=== PATIENT | female | born 1985 | race Caucasian/White ===

== ENCOUNTER 2016-10-17 19:40 | Emergency (ER) | payer MEDICAID ==
[2016-10-17] MEDS ORDERED: SULFAMETH/TRIMETH DS 800/160 MG TABLET PO STA (19:47)
[2016-10-17] MEDS ORDERED: SULFAMETH/TRIMETH DS 800/160 MG TABLET PO ONE (19:50)
[2016-10-17] MEDS ORDERED: oxyCOD/ACETAMIN 5 MG/325 MG TABLET PO STA (20:03)
[2016-10-17] MEDS ORDERED: oxyCOD/ACETAMIN 5 MG/325 MG TABLET PO ONE (20:04)
== END 2016-10-17 20:10 | disposition home or self-care (01) ==
DX: L02.414 Cutaneous abscess of left upper limb (principal); F11.99 Opioid use, unspecified with unspecified opioid-induced disorder; F17.200 Nicotine dependence, unspecified, uncomplicated
CPT/HCPCS: 10060; 87070; 87077; 87181; 87205; 99283; A9270

== ENCOUNTER 2018-05-06 17:44 | Emergency (ER) | payer MEDICAID ==
--- NOTE | 2018-05-06 21:53 | ED Physician Documentation ---
PD HPI SKIN - Stated complaint Stated Complaint: WOUND/LT BUTTOCK - Chief complaint Chief Complaint: Wound - History obtained from History obtained from: Patient - History of Present Illness Timing - onset: How many days ago (several) Timing - duration: Days Timing - details: Gradual onset, Still present Location: Other (left gluteal area with progressive swelling and tenderness over the past several days. Has had abscesses in the past, but not recent.) Quality / character: Painful, Discolored (red), Swelling Associated symptoms: Fever (just started today coming to the ER.). No: Myalgias Similar symptoms before: Diagnosis (staph abscesses) Review of Systems Constitutional: reports: Fever (just here in ER) Nose: denies: Rhinorrhea / runny nose, Congestion Throat: denies: Sore throat Respiratory: denies: Cough GI: denies: Abdominal Pain, Nausea, Vomiting, Diarrhea Skin: reports: Lesions. 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 - Present Medications Home Medications: Ambulatory Orders Medication Instructions Recorded Confirmed Cyclobenzaprine [Flexeril] 10 mg PO TID PRN #20 tablet 07/07/15 Oxycodone HCl/Acetaminophen 1 - 2 each PO Q6H PRN #14 tablet 07/07/15 [Percocet 5-325 mg Tablet] Sulfamethoxazole/Trimethoprim 1 each PO BID 10 Days tablet 10/17/16 [Sulfamethoxazole-Tmp Ds Tablet] Chlorhexidine Gluconate [Hibiclens] 15 ml TP DAILY #236 ml 05/06/18 Naproxen 375 mg PO BID #20 tablet 05/06/18 Oxycodone HCl/Acetaminophen 1 - 2 each PO Q6H PRN #14 tablet 05/06/18 [Percocet 5-325 mg Tablet] Sulfamethox/Trimeth 800/160 1 each PO BID #20 tablet 05/06/18 [Bactrim Ds 800/160] - Allergies Allergies/Adverse Reactions: Allergies Allergy/AdvReac Type Severity Reaction Status Date / Time No Known Drug Allergies Allergy Verified 07/07/15 14:21 - Social History Does the pt smoke?: Yes Smoking Status: Current every day smoker Does the pt drink ETOH?: Yes Does the pt have substance abuse?: Yes - Immunizations Immunizations are current?: Yes PD ED PE NORMAL - Vitals Vital signs reviewed: Yes - General General: Alert and oriented X 3, Well developed/nourished - Cardiac Cardiac: RRR, No murmur - Respiratory Respiratory: Clear bilaterally - Abdomen Abdomen: Soft, Non tender - Derm Derm: Normal color, Warm and dry, Other (left gluteal area with swelling, tenderness, redness about 4-5 cm dimater area, confirmed with U/S showing abscess subcut and does not appear to go into muscle layer. ) - Neuro Neuro: Alert and oriented X 3, No motor deficit, Normal speech Results - Vitals Vitals: Oxygen O2 Source Room air PD MEDICAL DECISION MAKING - ED course Complexity details: re-evaluated patient (feeling better after drainage, less pain and pressure. ), considered differential (appears as large subcut absess. Leg extension is okay without much pain, so does not seem into gluteal muscles. Bedside U/S showed it above muscle layer but large.), d/w patient Departure - Departure Disposition: 01 Home, Self Care Clinical Impression: Abscess, gluteal, left Condition: Stable Record reviewed to determine appropriate education?: Yes Instructions: ED Abscess IandD Prescriptions: Chlorhexidine Gluconate [Hibiclens] 15 ml TP DAILY #236 ml Naproxen 375 mg PO BID #20 tablet Oxycodone HCl/Acetaminophen [Percocet 5-325 mg Tablet] 1 - 2 each PO Q6H PRN #14 tablet PRN Reason: pain Sulfamethox/Trimeth 800/160 [Bactrim Ds 800/160] 1 each PO BID #20 tablet Comments: Warm moist towels or soaks to the abscess area to promote drainage. Bactrim antibiotic twice daily for 10 days for the infection. Naproxen twice daily for the inflammation. Add Tylenol or Percocet if needed for pain. Daily use the Hibiclens body wash from head to toe in the shower to reduce the germs on the skin surface overall. Recheck if not improving well over the next 2-3 days. Discharge Date/Time: 05/06/18 23:26
[2018-05-06] MEDS ORDERED: KETOROLAC 30 MG/ML VIAL IM STA (22:04)
[2018-05-06] MEDS ORDERED: SULFAMETH/TRIMETH DS 800/160 MG TABLET PO STA (22:04)
[2018-05-06] MEDS ORDERED: HYDROmorphone 2 MG/ML VIAL IM STA (22:04)
[2018-05-06 23:25] VITALS: BP 122/71
== END 2018-05-06 23:26 | disposition home or self-care (01) ==
LOC: ED 17:44
DX: L02.31 Cutaneous abscess of buttock (principal); F17.200 Nicotine dependence, unspecified, uncomplicated
CPT/HCPCS: 96372; 99283; A9270; J1170

== ENCOUNTER 2018-08-21 13:13 | Emergency (ER) | payer MEDICAID ==
[2018-08-21 13:20] VITALS: BP 150/95
[2018-08-21] MEDS ORDERED: cefTRIAXone 250 MG VIAL IM STA (13:27)
[2018-08-21] MEDS ORDERED: LIDOCAINE 1% 2 ML VIAL SUBQ ONE (13:27)
[2018-08-21] MEDS ORDERED: AZITHROMYCIN 250 MG TABLET PO STA (13:27)
--- NOTE | 2018-08-21 13:28 | ED Physician Documentation ---
PD HPI ABD PAIN - Stated complaint Stated Complaint: STOMACH ISSUES, - Chief complaint Chief Complaint: Abd Pain - History obtained from History obtained from: Patient - History of Present Illness Timing - onset: Other (She has had vaginal discharge for 4 weeks and her ex- boyfriend called her and told her that he was tested positive for chlamydia. 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 - Present Medications Home Medications: Ambulatory Orders Medication Instructions Recorded Confirmed Cyclobenzaprine [Flexeril] 10 mg PO TID PRN #20 tablet 07/07/15 Oxycodone HCl/Acetaminophen 1 - 2 each PO Q6H PRN #14 tablet 07/07/15 [Percocet 5-325 mg Tablet] Sulfamethoxazole/Trimethoprim 1 each PO BID 10 Days tablet 10/17/16 [Sulfamethoxazole-Tmp Ds Tablet] Chlorhexidine Gluconate [Hibiclens] 15 ml TP DAILY #236 ml 05/06/18 Naproxen 375 mg PO BID #20 tablet 05/06/18 Oxycodone HCl/Acetaminophen 1 - 2 each PO Q6H PRN #14 tablet 05/06/18 [Percocet 5-325 mg Tablet] Sulfamethox/Trimeth 800/160 1 each PO BID #20 tablet 05/06/18 [Bactrim Ds 800/160] - Allergies Allergies/Adverse Reactions: Allergies Allergy/AdvReac Type Severity Reaction Status Date / Time No Known Drug Allergies Allergy Verified 08/21/18 13:20 - Social History Does the pt smoke?: Yes Smoking Status: Current every day smoker Does the pt drink ETOH?: Yes Does the pt have substance abuse?: Yes - Immunizations Immunizations are current?: Yes PD ED PE NORMAL - Vitals Vital signs reviewed: Yes - General General: Alert and oriented X 3, No acute distress - Abdomen Abdomen: Soft, Non tender - Back Back: No CVA TTP - Neuro Neuro: Alert and oriented X 3, Normal speech Results - Vitals Vitals: Vital Signs - 24 hr 08/21/18 13:18 Temperature 36.7 C Heart Rate 110 H Respiratory 18 Rate Blood Pressure 150/95 H O2 Saturation 98 Oxygen O2 Source Room air Departure - Departure Disposition: 01 Home, Self Care Clinical Impression: STD exposure Condition: Good Record reviewed to determine appropriate education?: Yes Instructions: ED VD Cervicitis Treated Comments: Call your doctor to arrange a follow-up appointment, make the next available appointment. In the interim, return anytime if worse or if new symptoms develop. Your blood pressure was elevated today on check into the emergency department. This does not mean that you have hypertension, it is a common phenomenon to come to the emergency department and have elevated blood pressure. I recommend that you see your primary care physician within the week to have it rechecked when you are feeling better.
== END 2018-08-21 13:46 | disposition home or self-care (01) ==
LOC: ED 13:13
DX: Z20.2 Contact with and (suspected) exposure to infections with a predominantly sexual mode of transmission (principal); N89.8 Other specified noninflammatory disorders of vagina; R03.0 Elevated blood-pressure reading, without diagnosis of hypertension; F17.200 Nicotine dependence, unspecified, uncomplicated
CPT/HCPCS: 87491; 87591; 96372; 99282; 99283; A9270

== ENCOUNTER 2019-09-02 10:41 | Outpatient (CLI) | payer MEDICAID | END 2019-09-02 10:42 | disposition EMS.NT | LOC: EMS 10:41 | PROVIDERS: ATTEND Surgery | DX: R41.82 Altered mental status, unspecified (principal) ==

== ENCOUNTER 2020-06-26 19:49 | Emergency (ER) | payer MEDICAID ==
[2020-06-26] MEDS ORDERED: BUFFERED LIDOCAINE 10 ML SYRINGE SUBQ STA (20:27)
[2020-06-26] MEDS ORDERED: KETAMINE 500 MG/10 ML VIAL IVP STA (20:27)
--- NOTE | 2020-06-26 20:29 | ED Physician Documentation ---
PD HPI WOUND RECHECK - Stated complaint Stated Complaint: RT LEG PX/SWELLING - Chief complaint Chief Complaint: Wound - Histroy obtained from History obtained from: Patient - Additional information Additional information: 35-year-old woman with history of drug use. She is on methadone and still occasionally uses methamphetamines but does not inject. For the last week she has had an increasingly sized lump on the right thigh which is painful. Tried some oral clindamycin just prior to arrival which was not immediately helpful. Last oral intake at 4:30 PM she is quite anxious. No fevers. 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 - Present Medications Home Medications: Ambulatory Orders Medication Instructions Recorded Confirmed Ibuprofen [Motrin] 800 mg PO Q8H PRN #30 tablet 06/26/20 Methadone 123 mg PO DAILY 06/26/20 06/26/20 Sertraline [Zoloft] 50 mg PO DAILY 06/26/20 06/26/20 clindamycin HCL [Cleocin HCl] 300 mg PO BID #20 capsule 06/26/20 - Allergies Allergies/Adverse Reactions: Allergies Allergy/AdvReac Type Severity Reaction Status Date / Time No Known Drug Allergies Allergy Verified 06/26/20 20:03 - Social History Does the pt smoke?: Yes Smoking Status: Current every day smoker Does the pt drink ETOH?: Yes Does the pt have substance abuse?: Yes Substance Use and Type: Meth - Immunizations Immunizations are current?: Yes PD ED PE NORMAL - Vitals Vital signs reviewed: Yes - General General: Alert and oriented X 3, No acute distress - HEENT HEENT: PERRL, EOMI - Neck Neck: Supple, no meningeal sign, No bony TTP - Cardiac Cardiac: RRR, No murmur - Respiratory Respiratory: No respiratory distress, Clear bilaterally - Abdomen Abdomen: Normal bowel sounds, Soft, Non tender - Back Back: No CVA TTP, No spinal TTP - Derm Derm: Normal color, Warm and dry - Extremities Extremities: Other (An abscess on the lateral upper right thigh with a significant area of surrounding cellulitis measuring probably 20 x 15 cm.) - Neuro Neuro: Alert and oriented X 3, Normal speech Results - Vitals Vitals: Vital Signs - 24 hr 06/26/20 06/26/20 06/26/20 19:50 21:05 21:30 Temperature 37.2 C Heart Rate 102 H 105 H 110 H Respiratory 18 26 H 27 H Rate Blood Pressure 143/84 H 132/82 H 134/86 H O2 Saturation 98 98 99 06/26/20 06/26/20 06/26/20 21:31 21:32 21:33 Temperature Heart Rate 109 H 113 H 112 H Respiratory 27 H 33 H 28 H Rate Blood Pressure 153/101 H 134/94 H 147/93 H O2 Saturation 97 99 100 06/26/20 06/26/20 06/26/20 21:34 21:35 21:36 Temperature Heart Rate 115 H 108 H 96 Respiratory 25 H 15 16 Rate Blood Pressure 125/91 H 131/106 H 133/87 H O2 Saturation 99 97 99 06/26/20 06/26/20 21:45 22:32 Temperature 37.2 C Heart Rate 85 96 Respiratory 25 H 18 Rate Blood Pressure 130/78 121/76 O2 Saturation 96 98 Oxygen O2 Source Room air - Labs Labs: Microbiology 06/26/20 21:19 Wound Culture - Preliminary Abscess Laboratory Tests 06/26/20 06/26/20 20:55 20:55 WBC 13.4 H RBC 3.93 L Hgb 12.4 Hct 37.2 MCV 94.7 MCH 31.6 H MCHC 33.3 RDW 12.9 Plt Count 456 H MPV 8.6 Neut # (Auto) 9.6 H Lymph # (Auto) 2.9 [place] # (Auto) 0.8 Eos # (Auto) 0.0 Baso # (Auto) 0.1 Absolute Nucleated RBC 0.00 Nucleated RBC % 0.0 Sodium 138 Potassium 4.0 Chloride 100 L Carbon Dioxide 25 Anion Gap 13.0 BUN 9 Creatinine 0.8 Estimated GFR (MDRD) 82 L Glucose 88 Calcium 9.2 Procedures - General procedure General procedure: She was difficult for IV access, I personally placed a long 22-gauge IV in the left deep brachial vein using real-time ultrasound guidance after ChloraPrep which flushed and rhonda well and labs were drawn. - Abscess I&D (location) R thigh Preparation: Confirmed with ultrasound, Alcohol, Lidocaine 1%, Conscious sedation Incision: Incised with scalpel, Purulent drainage, Loculations broken, Packed (with 1" packing), Culture obtained Other: Pt tolerated well, Dressing applied - Procedural sedation Sedation prep: Informed consent, Time out completed, Last meal (430pm), PE performed, ASA 2 - mild disease Sedation medications: ketamine (150mg IVP) Patient status during sedation: Responds to tactile, Recovered uneventfully Sedation recovery: Recovered uneventfully Time in sedation (Minutes): 15 PD MEDICAL DECISION MAKING - ED course ED course: 35-year-old woman with a large abscess on the right lateral thigh with significant surrounding cellulitis but does not appear septic. She had a lot of anxiety and she was sedated for the incision and drainage which was done without immediate issue with improved pain. She will return in 2 days for wound check and culture review. She did receive IV clindamycin here. Departure - Departure Disposition: Home, Self Care Clinical Impression: Abscess Condition: Good Record reviewed to determine appropriate education?: Yes Instructions: ED Abscess IandD Prescriptions: clindamycin HCL [Cleocin HCl] 300 mg PO BID #20 capsule Ibuprofen [Motrin] 800 mg PO Q8H PRN #30 tablet PRN Reason: PAIN &/OR FEVER Comments: You were seen today for a very large abscess on the right thigh. Like due to return on Saturday for recheck, culture review and packing removal. Sooner if worsening or if pain is intolerable. Continue usual medications. Discharge Date/Time: 06/26/20 22:36
[2020-06-26 20:58] LABS: BASOPHILS # (AUTO) 0.1 10^3/uL (0.0-0.1); BASOPHILS % (AUTO) 0.4 %; EOSINOPHILS % (AUTO) 0.3 %; HGB - HEMOGLOBIN 12.4 g/dL (12.0-16.0); LYMPHOCYTES # (AUTO) 2.9 10^3/uL (1.5-3.5); LYMPHOCYTES % (AUTO) 21.8 %; MEAN CORPUSCULAR HEMOGLOBIN 31.6 pg (27.0-31.0); MEAN CORPUSCULAR HGB CONC 33.3 g/dL (32.0-36.0); MEAN CORPUSCULAR VOLUME 94.7 fL (81.0-99.0); MEAN PLATELET VOLUME 8.6 fL (7.9-10.8); MONOCYTES # (AUTO) 0.8 10^3/uL (0.0-1.0); NEUTROPHILS # (AUTO) 9.6 10^3/uL (1.5-6.6); NEUTROPHILS % (AUTO) 71.2 %; PLT - PLATELET COUNT 456 10^3/uL (130-450); RED BLOOD COUNT 3.93 10^6/uL (4.20-5.40); RED CELL DISTRIBUTION WIDTH 12.9 % (12.0-15.0); WHITE BLOOD COUNT 13.4 x10^3/uL (4.8-10.8)
[2020-06-26 21:13] LABS: CALCIUM 9.2 mg/dL (8.5-10.3); CREATININE 0.8 mg/dL (0.4-1.0)
[2020-06-26] MEDS ORDERED: CLINDAMYCIN 600 MG/50 ML 50 ML IV ONE (21:18)
[2020-06-26] MEDS ORDERED: KETOROLAC 30 MG/ML VIAL IVP STA (21:45)
[2020-06-26 22:32] VITALS: BP 121/76
== END 2020-06-26 22:36 | disposition home or self-care (01) ==
LOC: ED 19:49
DX: L02.415 Cutaneous abscess of right lower limb (principal); L03.115 Cellulitis of right lower limb; F41.9 Anxiety disorder, unspecified; F17.200 Nicotine dependence, unspecified, uncomplicated
CPT/HCPCS: 10061; 80048; 85025; 87070; 87205; 94770; 99152

== ENCOUNTER 2020-06-29 | Emergency (ER) | payer MEDICAID ==
--- OUTSIDE RECORDS SUMMARY | 2020-07-06 00:54 | EXTERNAL MEDICAL SUMMARY RPT | Continuity of Care Document ---
:1985 Demographics Phone Unavailable Preferred Language Unknown Marital Status Unknown Restorationism Affiliation Unknown Race Unknown Ethnic Group Unknown Author Organization [facility] Address [address] [place] [address] Phone Support Name Relationship Address Phone NOT Unavailable Unavailable Unavailable Problems date description facility 2014-07-27 17:15 CHLAMYDIA [facility]ACHOM[facility]IS OF [facility] UNSPECIFIED SITE 2014-07-27 17:15 TOBACCO USE DISORDER formerly [facility] 2014-07-27 17:15 NONINFECT VAG LEUKORRHEA [facility] 2014-11-04 19:54 CHLAMYDIA TRACHOMATIS OF [facility] UNSPECIFIED SITE 2014-11-04 19:54 TOBACCO USE DISORDER formerly [facility] 2014-11-04 19:54 FEM GENITAL SYMPTOMS NOS [facility] 2014-11-04 19:54 ABDOMINAL PAIN, UNSPECIFIED SITE [facility] 2015-01-25 19:14 TOBACCO USE DISORDER formerly [facility] 2015-01-25 19:14 NONINFECT VAG LEUKORRHEA [facility] 2015-07-07 14:13 CANNABIS ABUSE, UNCOMPLICATED [facility] 2015-07-07 14:13 NICOTINE DEPENDENCE, UNSPECIFIED, [facility] UNCOMPLICATED 2015-07-07 14:13 DORSALGIA, UNSPECIFIED [facility] 2015-07-07 14:13 MUSCLE SPASM OF BACK formerly [facility] 2015-07-07 14:13 DYSURIA Located within [facility] 2016-10-17 19:40 OPIOID USE, 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 2018-05-06 17:44 UNSPECIFIED OPEN WOUND OF LEFT [facility] BUTTOCK, INITIAL ENCOUNTER 2018-08-21 13:13 NICOTINE DEPENDENCE, UNSPECIFIED, [facility] UNCOMPLICATED 2018-08-21 13:13 OTHER SPECIFIED NONINFLAMMATORY [facility] DISORDERS OF VAGINA 2018-08-21 13:13 ELEVATED BLOOD-PRESSURE READING, [facility] W/O DIAGNOSIS OF HTN 2018-08-21 13:13 CONTACT W AND EXPOSURE TO INFECT W [facility] A SEXL MODE OF TRANSMISS 2020-06-26 19:49 NICOTINE DEPENDENCE, UNSPECIFIED, [facility] UNCOMPLICATED 2020-06-26 19:49 ANXIETY DISORDER, UNSPECIFIED [facility] 2020-06-26 19:49 CUTANEOUS ABSCESS OF RIGHT LOWER [facility] LIMB 2020-06-26 19:49 CELLULITIS OF RIGHT LOWER LIMB [facility] 2020-06-29 19:25 PROC/TRTMT NOT CRD OUT D/T PT LV [facility] BEF SEEN BY [facility] Allergies date description facility iodine [facility] [place] No known allergies [facility] [place] AMOXICILLIN [facility] [place] CODEINE [facility] [place] PENICILLIN V POTASSIUM [facility] edical [place] NO KNOWN ENVIRONMENTAL ALLERGIES [facility] SALMON [facility] [place] BEES [facility] [place] No Known Medication Allergies [facility] NSAIDS (NON-STEROIDAL ANTI-INFLAMMATORY DRUG) [facility] PENICILLINS [facility] [place] GRASS POLLEN-WILLA GRASS STANDARD [facility] NO KNOWN ALLERGIES [facility] [place] SHELLFISH CONTAINING PRODUCTS [facility] CODEINE [facility] [place] DIPHENHYDRAMINE HCL [facility] bird Center FENTANYL [facility] [place] SUMATRIPTAN [facility] [place] TRAMADOL [facility] [place] GABAPENTIN [facility] FLUOXETINE [facility] DIPHENHYDRAMINE [facility] JUNIPER [facility] HYDROCODONE-ACETAMINOPHEN [facility] No Known Drug Allergies [facility] Results Social History date description facility [id number]
== END 2020-06-29 19:42 | disposition left against medical advice (07) ==
DX: Z53.21 Procedure and treatment not carried out due to patient leaving prior to being seen by health care provider (principal)